=== PATIENT | female | born 1940 | race Caucasian/White ===

== ENCOUNTER 2016-09-13 05:46 | Inpatient (IN) | payer MEDICARE, BC ==
--- NOTE | ~2016-09-13 | CN ---
Consultation Report [facility] [address] [place]. [address] NAME: MARY JAUREGUI : 38 STATUS : REG REF PAT#: [id number] AGE: 75 ADM/REG DATE : 09/13/16 MR#: [id number] REPORT SERV DATE: 09/14/16 DICTATED BY: FRANKIE JUAREZ DATE: 09/14/16 REPORT STATUS : Draft TRANSCRIBED BY: MODL DATE: 09/14/16 GI CONSULTATION NOTE DATE OF CONSULTATION: 09/13/2016 REASON FOR CONSULTATION: Anemia, melena. HISTORY OF PRESENT ILLNESS: Ms Jauregui is a 75-year-old white female, who was admitted to [facility] for upgrading of her pacemaker to BiV pacer, but they were unable to complete this earlier today. During her workup, she was found to be anemic with a hemoglobin of 6.3 and a hematocrit of 20.9, platelets 232, MCV is 78.3. INR is 2.6. She is on Coumadin for mitral valve and aortic valve replacement with mechanical valve. These were performed for her history of rheumatic heart disease. She has had EGD and colonoscopy performed in 2014 for anemia and melena and at that time her INR was 5.1 and hemoglobin and hematocrit were 5.8 and 18.3 respectively. Her EGD performed on 01/06/2015 showed a normal esophagus, normal stomach, and normal duodenum up to the second portion of the duodenum. Colonoscopy was subsequently performed, which showed no endoscopic evidence of bleeding in the entire colon. Her rectal exam was normal and she did have multiple small mouth diverticula seen in the descending and sigmoid colon without any evidence of diverticular bleed. There was only a small amount of semi-solid brown stool seen in the colon, which were fecaliths. Also of note at that time, she had complained of some abdominal pain and due to her history a mesenteric Doppler was performed, which showed normal celiac and SMA. The GARY was not able to be visualized. PAST MEDICAL HISTORY: MVR, AVR with mechanical valve, rheumatic heart disease, right kidney cyst, compression fractures, hypertension, pulmonary hypertension, psoriasis, CHF with ejection fraction of 35%. PAST SURGICAL HISTORY: Pacemaker placement and ablation, cholecystectomy, appendectomy, hysterectomy, bilateral hip repair, and foot surgeries. SOCIAL HISTORY: Former tobacco use. Denies any alcohol or drug use. She is . Has good family support. FAMILY HISTORY: Noncontributory. ALLERGIES: PENICILLIN. MEDICATIONS: Reviewed. PHYSICAL EXAMINATION: VITAL SIGNS: The patient is afebrile. Her vital signs have been stable. GENERAL: The patient is awake and alert, in mild distress secondary to chest pain at the incision site. Consultation Report [place] [id number] [place] [address] NAME: MARY JAUREGUI : 38 STATUS : REG REF PAT#: [id number] AGE: 75 ADM/REG DATE : 09/13/16 MR#: [id number] REPORT SERV DATE: 09/14/16 DICTATED BY: FRANKIE JUAREZ DATE: 09/14/16 REPORT STATUS : Draft TRANSCRIBED BY: BONITA DATE: 09/14/16 HEENT: Atraumatic, normocephalic. Anicteric. Mucous membranes moist. CARDIAC: S1, S2. Systolic murmur. Rumbling. CHEST: Clear. ABDOMEN: Soft, nontender, nondistended. Bowel sounds normoactive. LABORATORY DATA: Showed WBC 6.7, hemoglobin 6.3, hematocrit 20.9, platelets 232, MCV 78.3. INR is 2.6. Sodium 140, potassium 4, chloride 105, bicarb 23, BUN 17, creatinine 1.26, glucose 98. Liver enzymes normal. IMPRESSION AND PLAN: Concern for upper gastrointestinal bleed given melena and anemia and in the setting of anticoagulation. Coumadin has been held. May consider bridging with heparin given her mitral valve replacement and aortic valve replacement. Would like to further investigate with endoscopy with an EGD once her INR is below ideally 1.6. She has received 2 units of PRBCs. Repeat H and H still pending at this time. Continue to monitor H and H and coags. I have taken the liberty of starting her on a Protonix drip. We will continue to follow with you. KRISH/BONITA Frankie Juarez MD / [id number] CC: Ivy Abraham M.D.
--- NOTE | ~2016-09-13 | CN ---
Consultation Report [facility] [address] [place]. [address] NAME: ARACELY JAUREGUI : 38 STATUS : ADM IN [facility]#: [id number] AGE: 75 ADM/REG DATE : 09/15/16 MR#: [id number] REPORT SERV DATE: 09/28/16 DICTATED BY: JAN DAVIS DATE: 09/27/16 REPORT STATUS : Draft TRANSCRIBED BY: MODL DATE: 09/27/16 CONSULTATION DATE OF CONSULTATION: 09/27/2016 REASON FOR CONSULTATION: Iron deficiency anemia. HISTORY OF PRESENT ILLNESS: Ms. Jauregui is a very pleasant 75-year-old woman with history of prior GI bleeding, atrial fibrillation, rheumatic heart disease with two mechanical valve, congestive heart failure with low ejection fraction. She reports that she had a prior iron deficiency requiring IV iron infusion in December of 2014. She was admitted for upgrading of her pacemaker to biventricular pacing and found to have an anemia with a hemoglobin 6.3, MCV of 78 with INR of 2.6. The patient underwent EGD, which showed AVMs and was treated with APC. She was transfused two units of packed red blood cells on 09/13/2016 and since then, hemoglobin has been fairly stable. She since undergone her pacemaker placement, unfortunately developed pocket hematoma and has wound VAC in place for this. She has had this exchanged. Hemoglobin is currently 7.0. When she was admitted, her MCV was low and her ferritin was found to be 7. The patient reports that she has had a difficult time with oral iron previously and she required IV iron when she was treated in 2014. She did have labs from 2015 showing hemoglobin 10.8 at that time. So, it is clear that her hemoglobins have been normalized after her 2014 admission. PAST MEDICAL HISTORY: Congestive heart failure with low ejection fraction of 35%, atrial fibrillation mechanical valve x2, hypertension, history of compression fractures, rheumatic heart disease, mitral valve replacement, aortic valve replacement with mechanical valve, psoriasis. PAST SURGICAL HISTORY: Pacemaker placement, ablation, cholecystectomy, appendectomy, hysterectomy, hip repair, foot surgery. SOCIAL HISTORY: She used to previously smoke. Does not drink or smoke at this time. She is . She lives in [facility]. FAMILY HISTORY: No family history of colon cancer. ALLERGIES: PENICILLIN. MEDICATIONS: Home medications are as follows: Amlodipine/benazepril 5/10 mg p.o. daily, B12 orally, digoxin 0.25 mg p.o. daily, magnesium oxide 400 mg daily, metformin 500 mg p.o. b.i.d., potassium chloride 10 mg mEq p.o. daily, torsemide 20 mg p.o. daily. Her current medications are as follows: Coreg 3.125 mg p.o. b.i.d., vitamin B12 orally, magnesium oxide 400 mg daily, Protonix, potassium, and Coumadin. Consultation Report [place] [id number] [place]. [address] NAME: ARACELY JAUREGUI : 38 STATUS : ADM IN PAT#: [id number] AGE: 75 ADM/REG DATE : 09/15/16 MR#: [id number] REPORT SERV DATE: 09/28/16 DICTATED BY: JAN DAVIS DATE: 09/27/16 REPORT STATUS : Draft TRANSCRIBED BY: BONITA DATE: 09/27/16 REVIEW OF SYSTEMS: Positive for significant fatigue and weakness. Negative for nausea, vomiting, or diarrhea. Positive for melena. Negative for abdominal pain. Negative for weight loss. PHYSICAL EXAMINATION: VITAL SIGNS: Temperature 97.8, heart rate of 70, BP 115/52. HEENT: Pupils equal, round, reactive. No oral lesions. No cervical adenopathy. LUNGS: Clear to auscultation. No wheezes, rales or rhonchi. CARDIAC: Regular rate and rhythm. She has a right-sided pacemaker in place. Wounds healing well. She has a left-sided wound VAC in place. ABDOMEN: Soft, nontender, nondistended. EXTREMITIES: No clubbing. No cyanosis. No edema. NEUROLOGIC: Intact. Strength intact. CURRENT LABS: Hemoglobin is 7.0, MCV of 83 with RDW of 20. ASSESSMENT AND PLAN: Aracely Jauregui is 75-year-old woman with a chronic anemia, now acutely worse with an iron deficiency. I think we re-explained the iron deficiency with AVMs. She needs iron replacement. I think given her low hemoglobin, her CHF, and her prior requirement for IV iron we should go ahead and give her IV iron. I have discussed with this with the patient. Reviewed this symptoms and risks associated with and she is okay with proceeding at this time. We discussed careful observation during the IV infusion. She does have a history of chronic anemia. In 2016, her hemoglobin was re-corrected, so I will make sure I see her in clinic in followup and make sure her hemoglobin corrects completely. I will arrange a followup. Please call me if there are any additional problems. DBD/MODL Jan Davis M.D. / [id number] CC: Ivy Abraham M.D.
--- NOTE | ~2016-09-13 | EGD ---
EGD REPORT [facility] [address] [place] [address] NAME: ARACELY JAUREGUI : 38 STATUS : ADM IN PAT#: [id number] AGE: 75 ADM/REG DATE : 09/15/16 MR#: [id number] REPORT SERV DATE: 09/16/16 DICTATED BY: FRANKIE HUMPHREYS DATE: 09/16/16 REPORT STATUS : Draft TRANSCRIBED BY: [employer] DATE: 09/16/16 [facility] Patient Name: Aracely Jauregui Date of : 1940 Attending MD: FRANKIE HUMPHREYS, Procedure Date No Time: 09/16/2016 Procedure: Upper GI endoscopy Indications: Anemia, Dark stools Referring MD: BRISSA SUTTON MD Medicines: Propofol per Anesthesia Complications: No immediate complications. Estimated blood loss: None. Procedure: Pre-Anesthesia Assessment: - ASA Grade Assessment: IV - A patient with severe systemic disease that is a constant threat to life. After obtaining informed consent, the endoscope was passed under direct vision. Throughout the procedure, the patient's blood pressure, pulse, and oxygen saturations were monitored continuously. The GIF [id number] was introduced through the mouth, and advanced to the second part of duodenum. The upper GI endoscopy was accomplished with ease. The patient tolerated the procedure well. Findings: No gross lesions were noted in the entire esophagus. The Z-line was found 44 cm from the incisors. Diffuse mild inflammation characterized by congestion (edema) and erythema was found in the gastric body and in the gastric antrum. Three small angioectasias with no active bleeding were found in the gastric body. Hemostasis was achieved with administration of argon plasma coagulation. The duodenal bulb and 2nd part of the duodenum were normal. Impression: - No gross lesions in esophagus. - Z-line 44 cm from the incisors. - Gastritis. - Three no active bleeding angioectasias in the stomach. - Normal duodenal bulb and 2nd part of the duodenum. Recommendation: - [facility]. - Use Protonix (pantoprazole) 40 mg PO BID. - No aspirin, ibuprofen, naproxen, or other non-steroidal anti-inflammatory drugs. - Continue present medications. - Return to GI clinic in 4 weeks. EGD REPORT [address] [address] NAME: ARACELY JAUREGUI : 38 STATUS : ADM IN [facility]#: [id number] AGE: 75 ADM/REG DATE : 09/15/16 MR#: [id number] REPORT SERV DATE: 09/16/16 DICTATED BY: FRANKIE HUMPHREYS DATE: 09/16/16 REPORT STATUS : Draft TRANSCRIBED BY: [employer] DATE: 09/16/16 Procedure Code(s): --- Professional --- 44968, Esophagogastroduodenoscopy, flexible, transoral; diagnostic, including collection of specimen(s) by brushing or washing, when performed (separate procedure) Diagnosis Code(s): --- Professional --- K29.70, Gastritis, unspecified, without bleeding D64.9, Anemia, unspecified CPT copyright 2013 [employer]. All rights reserved. The codes documented in this report are preliminary and upon finish photographer review may be revised to meet current compliance requirements. FRANKIE HUMPHREYS, 09/16/2016 2:20 PM This report has been signed electronically. Number of Addenda: 0 Note Initiated On: 09/16/2016 1:51 PM Scope Withdrawal Time 0 hours 0 minutes 0 seconds [address] [place] [id number]
--- NOTE | ~2016-09-13 | DS ---
Discharge Summary [facility] [address] [place]. [address] NAME: MARY JAUREGUI : 38 STATUS : DIS IN PAT#: [id number] AGE: 75 ADM/REG DATE : 09/15/16 MR#: [id number] REPORT SERV DATE: 10/10/16 DICTATED BY: KEVIN HOOVER DATE: 10/09/16 REPORT STATUS : Draft TRANSCRIBED BY: BONITA DATE: 10/09/16 Data Collection from hospitalization DISCHARGE DIAGNOSES: 1. Nonischemic cardiomyopathy. 2. Complete heart block. 3. Atrial fibrillation. 4. Hypertension. 5. Former smoker. 6. History of rheumatic heart disease. 7. Pulmonary hypertension. 8. Psoriasis. 9. Congestive heart failure - ejection fraction 35%. 10.Arthritis. 11.Anemia. CONSULTATIONS: 1. Carolyn Juarez MD. 2. Jan Davis M.D. PROCEDURES PERFORMED: 1. Abandoned lead placement procedure dated 09/13/2016. 2. Upper GI endoscopy on 09/16/2016. 3. Successful left chronic pacemaker generator explantation and successful right-sided CRRT implantation on 09/22/2016. 4. Successful left-sided Vac-Chad replacement on 09/26/2016. 5. Wound closure on 09/28/2016. MEDICATIONS: Eliquis 5 mg twice a day, Coreg 3.125 mg twice a day, vitamin B12 1000 mcg daily, Mag-Ox 400 mg daily, Glucophage 500 mg with breakfast and supper, potassium chloride SR 10 mEq daily, Demadex 10 mg daily, Ultram 50 mg every four hours as needed, and Coumadin 5.5 mg every evening. CONDITION AT DISCHARGE: Stable. DISPOSITION: The patient was discharged home on a low-sodium, low-cholesterol diet with activities as instructed. She would follow up with me two to three weeks following discharge. She would follow up in the Coumadin Clinic Monday following discharge. She would follow up with Dr. Jan Davis four weeks following discharge. She would follow up in the Pacer Clinic on 10/03/2016. HOSPITAL COURSE: This is a 75-year-old female who was going to undergo upgrading of her pacemaker to a biventricular pacer. During her workup, she was found to be anemic with a hemoglobin of 6.3 and hematocrit 20.9. INR level was 2.6. She is on Coumadin for mitral valve and aortic valve replacement with a mechanical valve. These were performed for her history of rheumatic heart disease. She was admitted to the hospital at this time for further evaluation and treatment. Discharge Summary [facility] [address] [place]. [address] NAME: MARY JAUREGUI : 38 STATUS : DIS IN PAT#: [id number] AGE: 75 ADM/REG DATE : 09/15/16 MR#: [id number] REPORT SERV DATE: 10/10/16 DICTATED BY: KEVIN HOOVER DATE: 10/09/16 REPORT STATUS : Draft TRANSCRIBED BY: BONITA DATE: 10/09/16 Upon admission, she was seen by Dr. Carolyn Juarez. She has had an EGD and colonoscopy in 2014 for anemia and melena. At that time, her INR level was 5.1. Her EGD in December of 2014 showed normal esophagus, normal stomach, and normal duodenum up to the second portion of the duodenum. Colonoscopy was subsequently performed, which showed no endoscopic evidence of bleeding in the entire colon. Her rectal exam was normal and she did have multiple small- mouth diverticula seen in the descending and sigmoid colon without any evidence of diverticular bleed. There was only a small amount of semisolid brown stool seen in the colon, which were fecaliths. At that time, she also complained of some abdominal pain, and due to her history, a mesenteric Doppler was performed which showed normal celiac and SMA. The GARY was not able to be visualized. Her liver enzymes were normal. Creatinine was 1.26. There was concern for upper GI bleed given her melena and anemia in the setting of anticoagulation. Coumadin had been held. We may consider bridging with heparin, given her mitral valve replacement and aortic valve replacement. She wanted to investigate with endoscopy with an EGD once the patient's INR level was ideally below 1.6. She had received two units of packed red blood cells. Repeat H and H were pending. The patient was started on a Protonix drip. The following day, Jantoven was being held. Her abdomen was soft with minimal tenderness to palpation diffusely, left greater than right. She received vitamin K. Proton pump inhibitor continued. It was felt that she should undergo an EGD once her INR level was less than 1.8. She developed a hematoma of the left shoulder that was painful. Entresto was started. It was felt that hematoma was secondary to heparin bridge. Coumadin was going to be restarted. Entresto had been started. On 09/16/2016, she was taken to the endoscopic suite by Dr. Carolyn Juarez where she underwent upper GI endoscopy. No gross lesions were noted in the entire esophagus. The Z-line was 44 cm from the incisors. There was gastritis. There were no active bleeding angioectasias in the stomach. There was a normal duodenal bulb and second part of the duodenum. On 09/17/2016, she has not had a bowel movement and had no further bleeding. She was tolerating a regular diet. She had no nausea or vomiting. Coumadin was restarted. H and H remained stable. Proton pump inhibitor continued. We would avoid NSAIDs. She had no chest pain, shortness of breath, or bleeding. Her swelling had decreased. A retrial of heparin bridge would be performed. Amlodipine was continued. The patient did not take her Coreg that evening and had some swelling around the pacer site. Heparin bridge was being performed to an INR level greater than 2. She was tolerating her diet. On 09/19/2016, she had a bowel movement. There was no bright red blood per rectum. There was no overt bleeding. Coumadin was continued. She was tolerating a regular diet. On 09/20/2016, Coumadin loading continued. She was taken to the electrophysiology laboratory where I performed the above-mentioned procedure. She tolerated this well, and there were no complications. The next day, blood pressure was under better control. She had some pain at the pacemaker site. She had no palpitations or chest pain. Entresto was decreased to half dose. Amlodipine was held. H and H remained stable. On 09/24/2016, she was comfortable. She was eating well. Her incisions looked okay. On 09/25/2016, she did remain comfortable. She had no shortness of breath. Vital signs were okay. INR level was 1.9. Coumadin was increased. Vac-Chad change was going to be performed the following day. On 09/27/2016, hemoglobin was still decreased. She was seen by Dr. Jan Davis regarding iron deficiency anemia. She had been transfused two units of packed red blood cells on 09/13/2016, and then since that time, her hemoglobin has been fairly stable. She had undergone pacemaker implantation, unfortunately, had developed pocket hematoma and had a Discharge Summary [place] [id number] [place]. [address] NAME: MARY JAUREGUI : 38 STATUS : DIS IN PAT#: [id number] AGE: 75 ADM/REG DATE : 09/15/16 MR#: [id number] REPORT SERV DATE: 10/10/16 DICTATED BY: KEVIN HOOVER DATE: 10/09/16 REPORT STATUS : Draft TRANSCRIBED BY: [employer] DATE: 10/09/[address] for this. She did have this exchanged. Hemoglobin was currently 7. She reports that she has had a difficult time with oral iron previously and had required IV iron when she was treated in 2014. Her chronic anemia was now acutely worse with iron deficiency, she does need iron replacement. It was felt that given her low hemoglobin, her congestive heart failure and her prior requirement for IV iron, we should go ahead and give her IV iron. The next day, wound closure was performed. She was comfortable. Iron had been infused. Discharge planning was performed. On 09/29/2016, discharge instructions were given. Due to her improved and stable condition, she was discharged home with the above- stated instructions. Information collected by: Renea Millan I submit the above information as my discharge summary. TG/BONITA Kevin Hoover M.D. / [id number] CC: Ivy Abraham M.D. Camille Sommer, MD Davey B. Daniel, M.D.
[~2016-09-13 05:46] MED LIST: C1 PO; CYANO1000T PO; DEMA20 PO; DIGITEK0.25 MG PO; FLAG500TAB PO; FLORASTOR250 MG PO; GLUCPH PO; JANTOVEN4 MG PO; JANTOVEN5 MG PO; JANTOVEN6 MG PO; KDUR10 PO; KLOR-CON M2020 MEQ PO; LAN25 PO; LIPITOR10 PO; LOTREL1 CA1 PO; MAGOX4 PO; NORV10 PO; PROTONIX PO
[2016-09-13 07:00] LABS: BASOPHILS 0.7 %; BASOPHILS ABSOLUTE 0.05 10/3/uL (0.0-0.16); EOSINOPHILS 3.6 %; EOSINOPHILS ABSOLUTE 0.24 10/3/uL (0.0-0.53); IMMATURE GRANULOCYTES 0.1 %; IMMATURE GRANULOCYTES ABSOLUTE 0.01 10/3/uL (0.0-0.11); LYMPHOCYTES ABSOLUTE 1.47 10/3/uL (0.67-4.30); MEAN CORPUS HGB CONC 30.1 g/dL (32.0-36.0); MEAN PLATELET VOLUME 9.4 fL (9.2-13.0); MONOCYTES 9.4 %; MONOCYTES ABSOLUTE 0.63 10/3/uL (0.21-1.20); NEUTROPHILS 64.2 %; NEUTROPHILS ABSOLUTE 4.29 10/3/uL (2.02-8.40); PLATELET COUNT 232 10/3/uL (150-400); RBC DISTRIBUTION WIDTH 16.3 % (12.0-16.0); RED CELL COUNT 2.67 10/6/uL (4.0-5.6); WHITE BLOOD CELLS 6.7 10/3/uL (4.5-10.5)
[2016-09-13 07:03] LABS: HEMATOCRIT 20.9 % (36.0-48.0); HEMOGLOBIN 6.3 g/dL (12.0-16.0); MANUAL DIFF NO %; MEAN CORPUSCULAR HEMOGLOB 23.6 pg (26.0-34.0); MEAN CORPUSCULAR VOLUME 78.3 fL (80-100)
[2016-09-13 07:07] LABS: INTERNATIONAL NORMAL RATI 2.6 UNITS (-); PROTIME (NOT ORD) 27.9 SEC (12.0-14.5)
[2016-09-13 07:14] LABS: BUN (BLOOD UREA NITROGEN) 17 MG/DL (6-23); CALCIUM, SERUM 8.7 MG/DL (8.5-10.4); CHLORIDE, SERUM 105 MMOL/L (96-112); CO2 (CARBON DIOXIDE) 23 MMOL/L (24-34); CREATININE 1.26 MG/DL (0.55-1.02); GFR AFRICAN AMERICAN 48 ML/MIN (>=60); GFR NON AFRICAN AMERICAN 41 ML/MIN (>=60); GLUCOSE, SERUM 98 MG/DL (60-99); SODIUM, SERUM 140 MMOL/L (135-148)
[2016-09-13 10:18] LABS: RETICULOCYTE COUNT 2.3 % (0.5-2.5); RETICULOCYTE COUNT ABSOLUTE 60.8 10/3/uL (20.2-119.8)
[2016-09-14 04:17] LABS: BASOPHILS 0.4 %; BASOPHILS ABSOLUTE 0.03 10/3/uL (0.0-0.16); EOSINOPHILS 2.5 %; EOSINOPHILS ABSOLUTE 0.17 10/3/uL (0.0-0.53); IMMATURE GRANULOCYTES 0.3 %; IMMATURE GRANULOCYTES ABSOLUTE 0.02 10/3/uL (0.0-0.11); LYMPHOCYTES 13.3 %; MEAN CORPUS HGB CONC 30.6 g/dL (32.0-36.0); MEAN CORPUSCULAR HEMOGLOB 24.8 pg (26.0-34.0); MEAN PLATELET VOLUME 9.5 fL (9.2-13.0); MONOCYTES 10.4 %; NEUTROPHILS 73.1 %; NEUTROPHILS ABSOLUTE 4.93 10/3/uL (2.02-8.40); PLATELET COUNT 199 10/3/uL (150-400); RBC DISTRIBUTION WIDTH 15.6 % (12.0-16.0); RED CELL COUNT 3.15 10/6/uL (4.0-5.6); WHITE BLOOD CELLS 6.8 10/3/uL (4.5-10.5)
[2016-09-14 04:18] LABS: HEMATOCRIT 25.5 % (36.0-48.0); HEMOGLOBIN 7.8 g/dL (12.0-16.0); MANUAL DIFF NO %
[2016-09-14 04:22] LABS: INTERNATIONAL NORMAL RATI 2.5 UNITS (-); PROTIME (NOT ORD) 26.7 SEC (12.0-14.5)
[2016-09-14 04:37] LABS: BUN (BLOOD UREA NITROGEN) 16 MG/DL (6-23); CALCIUM, SERUM 8.5 MG/DL (8.5-10.4); CHLORIDE, SERUM 111 MMOL/L (96-112); CO2 (CARBON DIOXIDE) 27 MMOL/L (24-34); CREATININE 1.29 MG/DL (0.55-1.02); GFR AFRICAN AMERICAN 46 ML/MIN (>=60); GFR NON AFRICAN AMERICAN 40 ML/MIN (>=60); GLUCOSE, SERUM 93 MG/DL (60-99); POTASSIUM, SERUM 4.7 MMOL/L (3.5-5.3); SODIUM, SERUM 144 MMOL/L (135-148)
[2016-09-14 10:53] LABS: % IRON SAT 4 % (20-50); FERRITIN 7 NG/ML (8-252); IRON BINDING CAPACITY 451 MCG/DL (225-410); IRON, SERUM 18 MCG/DL (35-150)
[2016-09-14 17:52] LABS: HEMATOCRIT 26.4 % (36.0-48.0); HEMOGLOBIN 8.3 g/dL (12.0-16.0)
[2016-09-14 17:58] LABS: INTERNATIONAL NORMAL RATI 2.4 UNITS (-); PROTIME (NOT ORD) 25.6 SEC (12.0-14.5)
[2016-09-15 05:29] LABS: BASOPHILS 0.4 %; BASOPHILS ABSOLUTE 0.03 10/3/uL (0.0-0.16); EOSINOPHILS 1.8 %; EOSINOPHILS ABSOLUTE 0.15 10/3/uL (0.0-0.53); HEMATOCRIT 26.3 % (36.0-48.0); IMMATURE GRANULOCYTES 0.1 %; IMMATURE GRANULOCYTES ABSOLUTE 0.01 10/3/uL (0.0-0.11); LYMPHOCYTES 18.5 %; MEAN CORPUS HGB CONC 30.4 g/dL (32.0-36.0); MEAN CORPUSCULAR HEMOGLOB 24.6 pg (26.0-34.0); MEAN CORPUSCULAR VOLUME 80.9 fL (80-100); MEAN PLATELET VOLUME 10.2 fL (9.2-13.0); MONOCYTES 10.5 %; MONOCYTES ABSOLUTE 0.85 10/3/uL (0.21-1.20); NEUTROPHILS 68.7 %; NEUTROPHILS ABSOLUTE 5.59 10/3/uL (2.02-8.40); PLATELET COUNT 200 10/3/uL (150-400); RBC DISTRIBUTION WIDTH 16.1 % (12.0-16.0); RED CELL COUNT 3.25 10/6/uL (4.0-5.6); WHITE BLOOD CELLS 8.1 10/3/uL (4.5-10.5)
[2016-09-15 05:33] LABS: MANUAL DIFF NO %
[2016-09-15 05:36] LABS: INTERNATIONAL NORMAL RATI 1.9 UNITS (-)
[2016-09-15 05:40] LABS: PROTIME (NOT ORD) 21.4 SEC (12.0-14.5)
[2016-09-15 09:25] LABS: BUN (BLOOD UREA NITROGEN) 20 MG/DL (6-23); CALCIUM, SERUM 8.4 MG/DL (8.5-10.4); CHLORIDE, SERUM 107 MMOL/L (96-112); CO2 (CARBON DIOXIDE) 25 MMOL/L (24-34); CREATININE 1.25 MG/DL (0.55-1.02); GFR AFRICAN AMERICAN 48 ML/MIN (>=60); GFR NON AFRICAN AMERICAN 41 ML/MIN (>=60); GLUCOSE, SERUM 87 MG/DL (60-99); POTASSIUM, SERUM 3.9 MMOL/L (3.5-5.3); SODIUM, SERUM 142 MMOL/L (135-148)
[2016-09-16 07:45] LABS: INTERNATIONAL NORMAL RATI 1.4 UNITS (-)
[2016-09-16 07:46] LABS: PROTIME (NOT ORD) 17.2 SEC (12.0-14.5)
[2016-09-16 07:47] LABS: PARTIAL THROMBO TIME 96.7 SEC (22.5-37.2)
[2016-09-16 07:49] LABS: BUN (BLOOD UREA NITROGEN) 20 MG/DL (6-23); CALCIUM, SERUM 8.5 MG/DL (8.5-10.4); CHLORIDE, SERUM 107 MMOL/L (96-112); CO2 (CARBON DIOXIDE) 27 MMOL/L (24-34); CREATININE 1.37 MG/DL (0.55-1.02); GFR AFRICAN AMERICAN 43 ML/MIN (>=60); GFR NON AFRICAN AMERICAN 37 ML/MIN (>=60); GLUCOSE, SERUM 92 MG/DL (60-99); POTASSIUM, SERUM 3.9 MMOL/L (3.5-5.3); SODIUM, SERUM 142 MMOL/L (135-148)
[2016-09-17 06:50] LABS: HEMOGLOBIN 8.1 g/dL (12.0-16.0)
[2016-09-17 07:00] LABS: INTERNATIONAL NORMAL RATI 1.4 UNITS (-); PROTIME (NOT ORD) 17.3 SEC (12.0-14.5)
[2016-09-17 07:09] LABS: CALCIUM, SERUM 8.7 MG/DL (8.5-10.4); CHLORIDE, SERUM 105 MMOL/L (96-112); CO2 (CARBON DIOXIDE) 27 MMOL/L (24-34); CREATININE 1.33 MG/DL (0.55-1.02); GFR AFRICAN AMERICAN 45 ML/MIN (>=60); GFR NON AFRICAN AMERICAN 38 ML/MIN (>=60); GLUCOSE, SERUM 95 MG/DL (60-99); POTASSIUM, SERUM 3.8 MMOL/L (3.5-5.3); SODIUM, SERUM 140 MMOL/L (135-148)
[2016-09-17 07:12] LABS: BUN (BLOOD UREA NITROGEN) 15 MG/DL (6-23)
[2016-09-18 03:35] LABS: BASOPHILS 0.6 %; BASOPHILS ABSOLUTE 0.05 10/3/uL (0.0-0.16); EOSINOPHILS 3.1 %; EOSINOPHILS ABSOLUTE 0.25 10/3/uL (0.0-0.53); HEMATOCRIT 25.7 % (36.0-48.0); HEMOGLOBIN 7.7 g/dL (12.0-16.0); IMMATURE GRANULOCYTES 0.3 %; IMMATURE GRANULOCYTES ABSOLUTE 0.02 10/3/uL (0.0-0.11); LYMPHOCYTES 22.4 %; LYMPHOCYTES ABSOLUTE 1.78 10/3/uL (0.67-4.30); MEAN CORPUSCULAR HEMOGLOB 24.6 pg (26.0-34.0); MEAN CORPUSCULAR VOLUME 82.1 fL (80-100); MONOCYTES 9.6 %; MONOCYTES ABSOLUTE 0.76 10/3/uL (0.21-1.20); NEUTROPHILS ABSOLUTE 5.09 10/3/uL (2.02-8.40); PLATELET COUNT 195 10/3/uL (150-400); RBC DISTRIBUTION WIDTH 17.4 % (12.0-16.0); RED CELL COUNT 3.13 10/6/uL (4.0-5.6)
[2016-09-18 03:37] LABS: MANUAL DIFF NO %
[2016-09-18 03:46] LABS: INTERNATIONAL NORMAL RATI 1.5 UNITS (-); PROTIME (NOT ORD) 17.9 SEC (12.0-14.5)
[2016-09-18 03:47] LABS: BUN (BLOOD UREA NITROGEN) 20 MG/DL (6-23); CALCIUM, SERUM 8.5 MG/DL (8.5-10.4); CHLORIDE, SERUM 103 MMOL/L (96-112); CO2 (CARBON DIOXIDE) 28 MMOL/L (24-34); CREATININE 1.38 MG/DL (0.55-1.02); GFR AFRICAN AMERICAN 43 ML/MIN (>=60); GFR NON AFRICAN AMERICAN 37 ML/MIN (>=60); GLUCOSE, SERUM 104 MG/DL (60-99); POTASSIUM, SERUM 3.9 MMOL/L (3.5-5.3); SODIUM, SERUM 140 MMOL/L (135-148)
[2016-09-18 04:09] LABS: PARTIAL THROMBO TIME > 150.0 SEC (22.5-37.2)
[2016-09-19 06:37] LABS: INTERNATIONAL NORMAL RATI 1.5 UNITS (-); PROTIME (NOT ORD) 17.6 SEC (12.0-14.5)
[2016-09-19 06:39] LABS: BASOPHILS 0.4 %; BASOPHILS ABSOLUTE 0.03 10/3/uL (0.0-0.16); EOSINOPHILS 3.9 %; EOSINOPHILS ABSOLUTE 0.28 10/3/uL (0.0-0.53); HEMATOCRIT 25.4 % (36.0-48.0); HEMOGLOBIN 7.5 g/dL (12.0-16.0); IMMATURE GRANULOCYTES 0.3 %; IMMATURE GRANULOCYTES ABSOLUTE 0.02 10/3/uL (0.0-0.11); LYMPHOCYTES 18.3 %; LYMPHOCYTES ABSOLUTE 1.31 10/3/uL (0.67-4.30); MANUAL DIFF NO %; MEAN CORPUS HGB CONC 29.5 g/dL (32.0-36.0); MEAN CORPUSCULAR HEMOGLOB 24.6 pg (26.0-34.0); MEAN CORPUSCULAR VOLUME 83.3 fL (80-100); MEAN PLATELET VOLUME 10.3 fL (9.2-13.0); MONOCYTES 10.6 %; MONOCYTES ABSOLUTE 0.76 10/3/uL (0.21-1.20); NEUTROPHILS 66.5 %; NEUTROPHILS ABSOLUTE 4.76 10/3/uL (2.02-8.40); PLATELET COUNT 219 10/3/uL (150-400); RBC DISTRIBUTION WIDTH 18.6 % (12.0-16.0); RED CELL COUNT 3.05 10/6/uL (4.0-5.6); WHITE BLOOD CELLS 7.2 10/3/uL (4.5-10.5)
[2016-09-19 06:49] LABS: BUN (BLOOD UREA NITROGEN) 18 MG/DL (6-23); CALCIUM, SERUM 8.7 MG/DL (8.5-10.4); CHLORIDE, SERUM 105 MMOL/L (96-112); CO2 (CARBON DIOXIDE) 27 MMOL/L (24-34); CREATININE 1.25 MG/DL (0.55-1.02); GFR AFRICAN AMERICAN 48 ML/MIN (>=60); GFR NON AFRICAN AMERICAN 41 ML/MIN (>=60); GLUCOSE, SERUM 90 MG/DL (60-99); SODIUM, SERUM 142 MMOL/L (135-148)
[2016-09-20 04:43] LABS: BASOPHILS 0.9 %; BASOPHILS ABSOLUTE 0.06 10/3/uL (0.0-0.16); EOSINOPHILS 3.7 %; EOSINOPHILS ABSOLUTE 0.24 10/3/uL (0.0-0.53); HEMATOCRIT 26.1 % (36.0-48.0); HEMOGLOBIN 7.8 g/dL (12.0-16.0); IMMATURE GRANULOCYTES 0.3 %; IMMATURE GRANULOCYTES ABSOLUTE 0.02 10/3/uL (0.0-0.11); LYMPHOCYTES 22.4 %; LYMPHOCYTES ABSOLUTE 1.45 10/3/uL (0.67-4.30); MEAN CORPUS HGB CONC 29.9 g/dL (32.0-36.0); MEAN CORPUSCULAR HEMOGLOB 24.9 pg (26.0-34.0); MEAN CORPUSCULAR VOLUME 83.4 fL (80-100); MEAN PLATELET VOLUME 9.8 fL (9.2-13.0); MONOCYTES 7.6 %; MONOCYTES ABSOLUTE 0.49 10/3/uL (0.21-1.20); NEUTROPHILS 65.1 %; PLATELET COUNT 209 10/3/uL (150-400); RED CELL COUNT 3.13 10/6/uL (4.0-5.6); WHITE BLOOD CELLS 6.5 10/3/uL (4.5-10.5)
[2016-09-20 04:46] LABS: MANUAL DIFF NO %
[2016-09-20 04:50] LABS: CALCIUM, SERUM 9.1 MG/DL (8.5-10.4); CHLORIDE, SERUM 103 MMOL/L (96-112); CO2 (CARBON DIOXIDE) 27 MMOL/L (24-34); CREATININE 1.35 MG/DL (0.55-1.02); GFR AFRICAN AMERICAN 44 ML/MIN (>=60); GFR NON AFRICAN AMERICAN 38 ML/MIN (>=60); GLUCOSE, SERUM 94 MG/DL (60-99); POTASSIUM, SERUM 4.6 MMOL/L (3.5-5.3); SODIUM, SERUM 139 MMOL/L (135-148)
[2016-09-20 04:54] LABS: BUN (BLOOD UREA NITROGEN) 24 MG/DL (6-23)
[2016-09-20 04:57] LABS: INTERNATIONAL NORMAL RATI 1.7 UNITS (-); PROTIME (NOT ORD) 19.4 SEC (12.0-14.5)
[2016-09-21 04:54] LABS: BASOPHILS 0.7 %; BASOPHILS ABSOLUTE 0.05 10/3/uL (0.0-0.16); EOSINOPHILS 3.4 %; EOSINOPHILS ABSOLUTE 0.24 10/3/uL (0.0-0.53); HEMATOCRIT 24.8 % (36.0-48.0); HEMOGLOBIN 7.4 g/dL (12.0-16.0); IMMATURE GRANULOCYTES 0.1 %; IMMATURE GRANULOCYTES ABSOLUTE 0.01 10/3/uL (0.0-0.11); LYMPHOCYTES 18.3 %; LYMPHOCYTES ABSOLUTE 1.29 10/3/uL (0.67-4.30); MEAN CORPUS HGB CONC 29.8 g/dL (32.0-36.0); MEAN CORPUSCULAR HEMOGLOB 24.8 pg (26.0-34.0); MEAN CORPUSCULAR VOLUME 83.2 fL (80-100); MEAN PLATELET VOLUME 10.3 fL (9.2-13.0); MONOCYTES 9.5 %; MONOCYTES ABSOLUTE 0.67 10/3/uL (0.21-1.20); NEUTROPHILS ABSOLUTE 4.79 10/3/uL (2.02-8.40); PLATELET COUNT 221 10/3/uL (150-400); RBC DISTRIBUTION WIDTH 19.7 % (12.0-16.0); RED CELL COUNT 2.98 10/6/uL (4.0-5.6); WHITE BLOOD CELLS 7.1 10/3/uL (4.5-10.5)
[2016-09-21 04:57] LABS: INTERNATIONAL NORMAL RATI 1.8 UNITS (-); PROTIME (NOT ORD) 20.4 SEC (12.0-14.5)
[2016-09-21 04:58] LABS: PARTIAL THROMBO TIME 82.6 SEC (22.5-37.2)
[2016-09-21 05:01] LABS: BUN (BLOOD UREA NITROGEN) 27 MG/DL (6-23); CALCIUM, SERUM 8.8 MG/DL (8.5-10.4); CHLORIDE, SERUM 100 MMOL/L (96-112); CO2 (CARBON DIOXIDE) 28 MMOL/L (24-34); CREATININE 1.54 MG/DL (0.55-1.02); GFR AFRICAN AMERICAN 37 ML/MIN (>=60); GFR NON AFRICAN AMERICAN 32 ML/MIN (>=60); GLUCOSE, SERUM 86 MG/DL (60-99); POTASSIUM, SERUM 4.3 MMOL/L (3.5-5.3); SODIUM, SERUM 135 MMOL/L (135-148)
[2016-09-21 05:03] LABS: MANUAL DIFF NO %
[2016-09-22 03:22] LABS: BASOPHILS 0.4 %; BASOPHILS ABSOLUTE 0.03 10/3/uL (0.0-0.16); EOSINOPHILS 2.5 %; EOSINOPHILS ABSOLUTE 0.18 10/3/uL (0.0-0.53); HEMATOCRIT 24.5 % (36.0-48.0); HEMOGLOBIN 7.5 g/dL (12.0-16.0); IMMATURE GRANULOCYTES 0.1 %; IMMATURE GRANULOCYTES ABSOLUTE 0.01 10/3/uL (0.0-0.11); LYMPHOCYTES 18.2 %; MEAN CORPUS HGB CONC 30.6 g/dL (32.0-36.0); MEAN CORPUSCULAR HEMOGLOB 25.3 pg (26.0-34.0); MEAN CORPUSCULAR VOLUME 82.8 fL (80-100); MEAN PLATELET VOLUME 10.1 fL (9.2-13.0); MONOCYTES 9.4 %; MONOCYTES ABSOLUTE 0.67 10/3/uL (0.21-1.20); NEUTROPHILS 69.4 %; NEUTROPHILS ABSOLUTE 4.95 10/3/uL (2.02-8.40); PLATELET COUNT 205 10/3/uL (150-400); RBC DISTRIBUTION WIDTH 20.4 % (12.0-16.0); RED CELL COUNT 2.96 10/6/uL (4.0-5.6); WHITE BLOOD CELLS 7.1 10/3/uL (4.5-10.5)
[2016-09-22 03:26] LABS: MANUAL DIFF NO %
[2016-09-22 03:31] LABS: BUN (BLOOD UREA NITROGEN) 28 MG/DL (6-23); CALCIUM, SERUM 8.9 MG/DL (8.5-10.4); CHLORIDE, SERUM 102 MMOL/L (96-112); CO2 (CARBON DIOXIDE) 26 MMOL/L (24-34); GFR AFRICAN AMERICAN 46 ML/MIN (>=60); GFR NON AFRICAN AMERICAN 40 ML/MIN (>=60); GLUCOSE, SERUM 91 MG/DL (60-99); POTASSIUM, SERUM 4.3 MMOL/L (3.5-5.3); SODIUM, SERUM 136 MMOL/L (135-148)
[2016-09-22 03:33] LABS: INTERNATIONAL NORMAL RATI 1.8 UNITS (-); PROTIME (NOT ORD) 20.5 SEC (12.0-14.5)
[2016-09-22 03:34] LABS: PARTIAL THROMBO TIME 90.9 SEC (22.5-37.2)
[2016-09-23 06:08] LABS: BASOPHILS 0.4 %; BASOPHILS ABSOLUTE 0.03 10/3/uL (0.0-0.16); EOSINOPHILS 2.4 %; EOSINOPHILS ABSOLUTE 0.18 10/3/uL (0.0-0.53); HEMATOCRIT 24.4 % (36.0-48.0); HEMOGLOBIN 7.4 g/dL (12.0-16.0); IMMATURE GRANULOCYTES 0.1 %; IMMATURE GRANULOCYTES ABSOLUTE 0.01 10/3/uL (0.0-0.11); LYMPHOCYTES 9.9 %; LYMPHOCYTES ABSOLUTE 0.73 10/3/uL (0.67-4.30); MEAN CORPUS HGB CONC 30.3 g/dL (32.0-36.0); MEAN CORPUSCULAR HEMOGLOB 25.4 pg (26.0-34.0); MEAN CORPUSCULAR VOLUME 83.8 fL (80-100); MEAN PLATELET VOLUME 10.1 fL (9.2-13.0); MONOCYTES 8.5 %; MONOCYTES ABSOLUTE 0.63 10/3/uL (0.21-1.20); NEUTROPHILS 78.7 %; NEUTROPHILS ABSOLUTE 5.83 10/3/uL (2.02-8.40); PLATELET COUNT 214 10/3/uL (150-400); RBC DISTRIBUTION WIDTH 20.5 % (12.0-16.0); RED CELL COUNT 2.91 10/6/uL (4.0-5.6); WHITE BLOOD CELLS 7.4 10/3/uL (4.5-10.5)
[2016-09-23 06:12] LABS: MANUAL DIFF NO %
[2016-09-23 06:13] LABS: INTERNATIONAL NORMAL RATI 2.1 UNITS (-)
[2016-09-23 06:19] LABS: CALCIUM, SERUM 8.7 MG/DL (8.5-10.4); CHLORIDE, SERUM 103 MMOL/L (96-112); CO2 (CARBON DIOXIDE) 27 MMOL/L (24-34); CREATININE 1.41 MG/DL (0.55-1.02); GFR AFRICAN AMERICAN 42 ML/MIN (>=60); GFR NON AFRICAN AMERICAN 36 ML/MIN (>=60); GLUCOSE, SERUM 92 MG/DL (60-99); POTASSIUM, SERUM 4.5 MMOL/L (3.5-5.3); SODIUM, SERUM 139 MMOL/L (135-148)
[2016-09-23 06:20] LABS: BUN (BLOOD UREA NITROGEN) 22 MG/DL (6-23)
[2016-09-24 06:00] LABS: BASOPHILS 0.5 %; BASOPHILS ABSOLUTE 0.03 10/3/uL (0.0-0.16); EOSINOPHILS 3.4 %; EOSINOPHILS ABSOLUTE 0.22 10/3/uL (0.0-0.53); HEMATOCRIT 24.8 % (36.0-48.0); HEMOGLOBIN 7.5 g/dL (12.0-16.0); IMMATURE GRANULOCYTES 0.2 %; IMMATURE GRANULOCYTES ABSOLUTE 0.01 10/3/uL (0.0-0.11); LYMPHOCYTES 15.5 %; MEAN CORPUS HGB CONC 30.2 g/dL (32.0-36.0); MEAN CORPUSCULAR HEMOGLOB 25.3 pg (26.0-34.0); MEAN CORPUSCULAR VOLUME 83.8 fL (80-100); MEAN PLATELET VOLUME 9.7 fL (9.2-13.0); MONOCYTES 10.4 %; MONOCYTES ABSOLUTE 0.67 10/3/uL (0.21-1.20); NEUTROPHILS ABSOLUTE 4.51 10/3/uL (2.02-8.40); PLATELET COUNT 205 10/3/uL (150-400); RBC DISTRIBUTION WIDTH 20.3 % (12.0-16.0); RED CELL COUNT 2.96 10/6/uL (4.0-5.6); WHITE BLOOD CELLS 6.4 10/3/uL (4.5-10.5)
[2016-09-24 06:02] LABS: INTERNATIONAL NORMAL RATI 2.1 UNITS (-); PROTIME (NOT ORD) 23.2 SEC (12.0-14.5)
[2016-09-24 06:04] LABS: MANUAL DIFF NO %
[2016-09-24 06:10] LABS: CALCIUM, SERUM 8.5 MG/DL (8.5-10.4); CHLORIDE, SERUM 106 MMOL/L (96-112); CO2 (CARBON DIOXIDE) 26 MMOL/L (24-34); CREATININE 1.35 MG/DL (0.55-1.02); GFR AFRICAN AMERICAN 44 ML/MIN (>=60); GFR NON AFRICAN AMERICAN 38 ML/MIN (>=60); GLUCOSE, SERUM 91 MG/DL (60-99); POTASSIUM, SERUM 4.6 MMOL/L (3.5-5.3); SODIUM, SERUM 140 MMOL/L (135-148)
[2016-09-24 06:11] LABS: BUN (BLOOD UREA NITROGEN) 29 MG/DL (6-23)
[2016-09-25 05:23] LABS: BASOPHILS 0.6 %; BASOPHILS ABSOLUTE 0.03 10/3/uL (0.0-0.16); EOSINOPHILS 4.1 %; EOSINOPHILS ABSOLUTE 0.22 10/3/uL (0.0-0.53); HEMOGLOBIN 7.2 g/dL (12.0-16.0); IMMATURE GRANULOCYTES 0.2 %; IMMATURE GRANULOCYTES ABSOLUTE 0.01 10/3/uL (0.0-0.11); LYMPHOCYTES 18.2 %; LYMPHOCYTES ABSOLUTE 0.98 10/3/uL (0.67-4.30); MEAN CORPUSCULAR HEMOGLOB 25.4 pg (26.0-34.0); MEAN CORPUSCULAR VOLUME 84.8 fL (80-100); MEAN PLATELET VOLUME 9.9 fL (9.2-13.0); MONOCYTES 12.2 %; MONOCYTES ABSOLUTE 0.66 10/3/uL (0.21-1.20); NEUTROPHILS 64.7 %; NEUTROPHILS ABSOLUTE 3.49 10/3/uL (2.02-8.40); PLATELET COUNT 211 10/3/uL (150-400); RBC DISTRIBUTION WIDTH 20.4 % (12.0-16.0); RED CELL COUNT 2.83 10/6/uL (4.0-5.6); WHITE BLOOD CELLS 5.4 10/3/uL (4.5-10.5)
[2016-09-25 05:26] LABS: MANUAL DIFF NO %
[2016-09-25 05:29] LABS: BUN (BLOOD UREA NITROGEN) 27 MG/DL (6-23); CALCIUM, SERUM 9.2 MG/DL (8.5-10.4); CHLORIDE, SERUM 105 MMOL/L (96-112); CO2 (CARBON DIOXIDE) 26 MMOL/L (24-34); CREATININE 1.15 MG/DL (0.55-1.02); GFR AFRICAN AMERICAN 53 ML/MIN (>=60); GFR NON AFRICAN AMERICAN 46 ML/MIN (>=60); GLUCOSE, SERUM 82 MG/DL (60-99); POTASSIUM, SERUM 4.4 MMOL/L (3.5-5.3); SODIUM, SERUM 139 MMOL/L (135-148)
[2016-09-25 05:36] LABS: INTERNATIONAL NORMAL RATI 1.9 UNITS (-); PROTIME (NOT ORD) 21.8 SEC (12.0-14.5)
[2016-09-26 04:21] LABS: HEMATOCRIT 23.3 % (36.0-48.0); HEMOGLOBIN 7.2 g/dL (12.0-16.0); MEAN CORPUS HGB CONC 30.9 g/dL (32.0-36.0); MEAN CORPUSCULAR HEMOGLOB 26.1 pg (26.0-34.0); MEAN CORPUSCULAR VOLUME 84.4 fL (80-100); MEAN PLATELET VOLUME 10.3 fL (9.2-13.0); PLATELET COUNT 255 10/3/uL (150-400); RBC DISTRIBUTION WIDTH 20.5 % (12.0-16.0); RED CELL COUNT 2.76 10/6/uL (4.0-5.6); WHITE BLOOD CELLS 5.3 10/3/uL (4.5-10.5)
[2016-09-26 04:30] LABS: MANUAL DIFF YES %
[2016-09-26 04:34] LABS: BUN (BLOOD UREA NITROGEN) 29 MG/DL (6-23); CALCIUM, SERUM 8.9 MG/DL (8.5-10.4); CHLORIDE, SERUM 104 MMOL/L (96-112); CO2 (CARBON DIOXIDE) 28 MMOL/L (24-34); CREATININE 1.35 MG/DL (0.55-1.02); GFR AFRICAN AMERICAN 44 ML/MIN (>=60); GFR NON AFRICAN AMERICAN 38 ML/MIN (>=60); GLUCOSE, SERUM 83 MG/DL (60-99); POTASSIUM, SERUM 4.2 MMOL/L (3.5-5.3); SODIUM, SERUM 139 MMOL/L (135-148)
[2016-09-26 04:34] LABS: INTERNATIONAL NORMAL RATI 2.1 UNITS (-); PROTIME (NOT ORD) 23.1 SEC (12.0-14.5)
[2016-09-26 06:54] LABS: ANISOCYTOSIS 1+ (5-10/OIF) (0-5/OIF); BAND NEUTROPHILS 3 %; ELLIPTOCYTES 1+ (3-10/OIF) (0-2/OIF); EOSINOPHILS 6 %; EOSINOPHILS ABSOLUTE (CALC) 0.32 10/3/uL (0.0-0.53); HYPOCHROMIA 1+ (3-10/OIF) (0-2/OIF); LYMPHOCYTES 20 %; LYMPHOCYTES ABSOLUTE (CALC) 1.06 10/3/uL (0.67-4.30); MONOCYTES 2 %; MONOCYTES ABSOLUTE (CALC) 0.11 10/3/uL (0.21-1.20); NEUTROPHILS ABSOLUTE (CALC) 3.82 10/3/uL (2.02-8.40); PLATELET ESTIMATE ADQ (ADEQUATE); POIKILOCYTOSIS 1+ (5-10/OIF) (0-5/OIF); POLYCHROMASIA 1+ (2-5/OIF) (0-1/OIF); SEGMENTED NEUTROPHIL (0) 69 %; TOTAL NUCLEATED CELLS 100
[2016-09-27 05:25] LABS: BASOPHILS ABSOLUTE 0.05 10/3/uL (0.0-0.16); EOSINOPHILS 4.5 %; EOSINOPHILS ABSOLUTE 0.23 10/3/uL (0.0-0.53); HEMATOCRIT 22.9 % (36.0-48.0); IMMATURE GRANULOCYTES 0.2 %; IMMATURE GRANULOCYTES ABSOLUTE 0.01 10/3/uL (0.0-0.11); LYMPHOCYTES 22.7 %; LYMPHOCYTES ABSOLUTE 1.16 10/3/uL (0.67-4.30); MEAN CORPUS HGB CONC 30.6 g/dL (32.0-36.0); MEAN CORPUSCULAR HEMOGLOB 25.5 pg (26.0-34.0); MEAN CORPUSCULAR VOLUME 83.6 fL (80-100); MEAN PLATELET VOLUME 9.1 fL (9.2-13.0); MONOCYTES 10.2 %; MONOCYTES ABSOLUTE 0.52 10/3/uL (0.21-1.20); NEUTROPHILS 61.4 %; NEUTROPHILS ABSOLUTE 3.13 10/3/uL (2.02-8.40); PLATELET COUNT 228 10/3/uL (150-400); RBC DISTRIBUTION WIDTH 20.1 % (12.0-16.0); RED CELL COUNT 2.74 10/6/uL (4.0-5.6); WHITE BLOOD CELLS 5.1 10/3/uL (4.5-10.5)
[2016-09-27 05:26] LABS: INTERNATIONAL NORMAL RATI 2.2 UNITS (-)
[2016-09-27 05:29] LABS: MANUAL DIFF NO %
[2016-09-27 05:36] LABS: BUN (BLOOD UREA NITROGEN) 29 MG/DL (6-23); CALCIUM, SERUM 8.6 MG/DL (8.5-10.4); CHLORIDE, SERUM 104 MMOL/L (96-112); CO2 (CARBON DIOXIDE) 26 MMOL/L (24-34); CREATININE 1.21 MG/DL (0.55-1.02); GFR AFRICAN AMERICAN 50 ML/MIN (>=60); GFR NON AFRICAN AMERICAN 43 ML/MIN (>=60); GLUCOSE, SERUM 87 MG/DL (60-99); POTASSIUM, SERUM 4.4 MMOL/L (3.5-5.3); SODIUM, SERUM 137 MMOL/L (135-148)
[2016-09-28 06:49] LABS: BASOPHILS ABSOLUTE 0.06 10/3/uL (0.0-0.16); EOSINOPHILS 4.2 %; EOSINOPHILS ABSOLUTE 0.25 10/3/uL (0.0-0.53); HEMATOCRIT 24.2 % (36.0-48.0); HEMOGLOBIN 7.3 g/dL (12.0-16.0); IMMATURE GRANULOCYTES 0.2 %; IMMATURE GRANULOCYTES ABSOLUTE 0.01 10/3/uL (0.0-0.11); LYMPHOCYTES ABSOLUTE 1.14 10/3/uL (0.67-4.30); MEAN CORPUS HGB CONC 30.2 g/dL (32.0-36.0); MEAN CORPUSCULAR HEMOGLOB 25.2 pg (26.0-34.0); MEAN CORPUSCULAR VOLUME 83.4 fL (80-100); MEAN PLATELET VOLUME 9.4 fL (9.2-13.0); MONOCYTES 9.5 %; MONOCYTES ABSOLUTE 0.57 10/3/uL (0.21-1.20); NEUTROPHILS 66.1 %; NEUTROPHILS ABSOLUTE 3.97 10/3/uL (2.02-8.40); PLATELET COUNT 266 10/3/uL (150-400); RBC DISTRIBUTION WIDTH 20.2 % (12.0-16.0)
[2016-09-28 06:50] LABS: MANUAL DIFF NO %
[2016-09-28 06:56] LABS: INTERNATIONAL NORMAL RATI 1.7 UNITS (-)
[2016-09-28 06:57] LABS: PROTIME (NOT ORD) 19.6 SEC (12.0-14.5)
[2016-09-28 07:05] LABS: ALBUMIN 3.4 G/DL (3.5-5.0); ALKALINE PHOSPHATASE 53 U/L (45-117); BUN (BLOOD UREA NITROGEN) 29 MG/DL (6-23); CHLORIDE, SERUM 105 MMOL/L (96-112); CO2 (CARBON DIOXIDE) 26 MMOL/L (24-34); CREATININE 1.15 MG/DL (0.55-1.02); DIRECT BILIRUBIN 0.1 MG/DL (0.0-0.4); GFR AFRICAN AMERICAN 53 ML/MIN (>=60); GFR NON AFRICAN AMERICAN 46 ML/MIN (>=60); GLUCOSE, SERUM 80 MG/DL (60-99); INDIRECT BILIRUBIN(NOT ORDER) 0.4 MG/DL (0.1-0.9); POTASSIUM, SERUM 4.5 MMOL/L (3.5-5.3); SGOT(AST) 20 U/L (5-40); SGPT(ALT) 13 U/L (5-65); SODIUM, SERUM 140 MMOL/L (135-148); TOTAL PROTEIN 7.3 G/DL (6.0-8.5)
[2016-09-28 07:06] LABS: TOTAL BILIRUBIN 0.5 MG/DL (0-1.2)
[2016-09-29 06:54] LABS: INTERNATIONAL NORMAL RATI 1.5 UNITS (-); PROTIME (NOT ORD) 18.2 SEC (12.0-14.5)
[2016-09-29 06:58] LABS: BUN (BLOOD UREA NITROGEN) 28 MG/DL (6-23); CHLORIDE, SERUM 108 MMOL/L (96-112); CO2 (CARBON DIOXIDE) 22 MMOL/L (24-34); CREATININE 1.09 MG/DL (0.55-1.02); GFR AFRICAN AMERICAN 57 ML/MIN (>=60); GFR NON AFRICAN AMERICAN 49 ML/MIN (>=60); GLUCOSE, SERUM 77 MG/DL (60-99); POTASSIUM, SERUM 4.6 MMOL/L (3.5-5.3); SODIUM, SERUM 140 MMOL/L (135-148)
[2016-09-29 07:35] LABS: BASOPHILS ABSOLUTE 0.05 10/3/uL (0.0-0.16); EOSINOPHILS 4.4 %; EOSINOPHILS ABSOLUTE 0.23 10/3/uL (0.0-0.53); HEMATOCRIT 23.2 % (36.0-48.0); HEMOGLOBIN 7.1 g/dL (12.0-16.0); IMMATURE GRANULOCYTES 0.2 %; IMMATURE GRANULOCYTES ABSOLUTE 0.01 10/3/uL (0.0-0.11); LYMPHOCYTES 20.4 %; LYMPHOCYTES ABSOLUTE 1.06 10/3/uL (0.67-4.30); MEAN CORPUS HGB CONC 30.6 g/dL (32.0-36.0); MEAN CORPUSCULAR HEMOGLOB 25.5 pg (26.0-34.0); MEAN CORPUSCULAR VOLUME 83.5 fL (80-100); MEAN PLATELET VOLUME 9.3 fL (9.2-13.0); MONOCYTES 8.1 %; MONOCYTES ABSOLUTE 0.42 10/3/uL (0.21-1.20); NEUTROPHILS 65.9 %; NEUTROPHILS ABSOLUTE 3.43 10/3/uL (2.02-8.40); PLATELET COUNT 255 10/3/uL (150-400); RED CELL COUNT 2.78 10/6/uL (4.0-5.6); WHITE BLOOD CELLS 5.2 10/3/uL (4.5-10.5)
[2016-09-29 07:36] LABS: MANUAL DIFF NO %
[2016-09-29] MEDS ORDERED: COREG3 PO (18:39)
[2016-09-29] MEDS ORDERED: ELIQUIS 5 MG TAB5 MG PO (18:40)
[2016-09-29] MEDS ORDERED: ULTRAM50 PO (18:42)
[2017-02-20] MEDS ORDERED: GLUCPH PO (10:56)
[2017-02-20] MEDS ORDERED: JANTOVEN5 MG PO (11:18)
[2017-02-20] MEDS ORDERED: LAN25 PO (11:20)
[2017-02-20] MEDS ORDERED: JANTOVEN6 MG PO ×2 (11:23→11:25)
[2017-02-20] MEDS ORDERED: DEMA20 PO (11:26)
[2017-02-20] MEDS ORDERED: MAGOX4 PO (11:27)
[2017-02-20] MEDS ORDERED: LOTE10 PO (11:27)
[2017-02-20] MEDS ORDERED: MICRO-K10 MEQ PO (11:27)
[2017-02-20] MEDS ORDERED: COREG3 PO (11:28)
[2017-02-27] MEDS ORDERED: PROTONIX PO (14:34)
[2017-02-27] MEDS ORDERED: NORV5 PO (14:39)
== END 2016-09-29 19:55 | disposition home or self-care (01) | DRG 243 ==
LOC: CORLMH 05:46 → SSU2 06:00 → 7NO 09-16 15:05
PROVIDERS: Internal Medicine; Internal Medicine Clinical Cardiac Electrophysiology; Internal Medicine Gastroenterology
PROC: 30233N1 Transfusion of Nonautologous Red Blood Cells into Peripheral Vein, Percutaneous Approach (ICD-10-PCS; 2016-09-15)
PROC: 0DJ08ZZ Inspection of Upper Intestinal Tract, Via Natural or Artificial Opening Endoscopic (ICD-10-PCS; 2016-09-16)
PROC: 0DJ08ZZ Inspection of Upper Intestinal Tract, Via Natural or Artificial Opening Endoscopic (ICD-10-PCS; principal; 2016-09-16 12:00)
PROC: 0JH607Z Insertion of Cardiac Resynchronization Pacemaker Pulse Generator into Chest Subcutaneous Tissue and Fascia, Open Approach (ICD-10-PCS; 2016-09-22)
PROC: 02H63JZ Insertion of Pacemaker Lead into Right Atrium, Percutaneous Approach (ICD-10-PCS; 2016-09-22)
PROC: 02HK3JZ Insertion of Pacemaker Lead into Right Ventricle, Percutaneous Approach (ICD-10-PCS; 2016-09-22)
PROC: 02H43JZ Insertion of Pacemaker Lead into Coronary Vein, Percutaneous Approach (ICD-10-PCS; 2016-09-22)
PROC: 2W04X6Z Change Pressure Dressing on Chest Wall (ICD-10-PCS; 2016-09-26)
DX: I44.2 Atrioventricular block, complete (principal); K92.2 Gastrointestinal hemorrhage, unspecified; I50.22 Chronic systolic (congestive) heart failure; I48.91 Unspecified atrial fibrillation; Z53.09 Procedure and treatment not carried out because of other contraindication; Z95.0 Presence of cardiac pacemaker; Z90.49 Acquired absence of other specified parts of digestive tract; Z90.710 Acquired absence of both cervix and uterus; Z87.891 Personal history of nicotine dependence; Z79.01 Long term (current) use of anticoagulants; K31.819 Angiodysplasia of stomach and duodenum without bleeding; D50.9 Iron deficiency anemia, unspecified; Z88.0 Allergy status to penicillin
CPT/HCPCS: 13160; 33207; 33225; 33233; 36005; 36415; 71010; 80048; 80076; 82270; 82272; 82728; 82962; 83540; 83550; 83735; 85014; 85018; 85025; 85045; 85610; 85730; 86850; 86870; 86900; 86901; 86902; 86920; 86922; 93005; 97161-GP; 97165-GO; 97535-GO; 97605; 97607; A9270-GY; C1769; C1887; C1892; C1898; C1900; C2621; C9113; G8978-CH-GP; G8979-CH-GP; G8980-CH-GP; J0690; J1750; J2370; J2405; J3010; P9016; Q9967

== ENCOUNTER 2016-10-02 11:50 | Inpatient (IN) | payer MEDICARE, BC ==
--- NOTE | ~2016-10-02 | CN ---
Consultation Report [facility] [address] [place]. [address] NAME: MARY JAUREGUI : 38 STATUS : ADM IN PAT#: [id number] AGE: 75 ADM/REG DATE : 10/02/16 MR#: [id number] REPORT SERV DATE: 10/03/16 DICTATED BY: KEVIN VEE DATE: 10/02/16 REPORT STATUS : Draft TRANSCRIBED BY: MODL DATE: 10/02/16 CONSULTATION DATE OF CONSULTATION: 10/02/2016 HISTORY OF PRESENT ILLNESS: This is a 75-year-old white female whom I am seeing for Dr. Carolyn Juarez, admitted with bright red blood. No abdominal pain. No nausea, vomiting, or fever. No shortness of breath or chest pain. Known history of iron-deficiency anemia. Had a gastric AVM, treated with APC on 09/16/[address] Juarez. She has 2 mechanical valves, mitral and aortic valves, and had a recent change of her pacemaker last week, was discharged on Coumadin and Eliquis. She is diabetic, hypertensive, had a negative colon in 2014, status post cholecystectomy, hysterectomy, umbilical hernia, and appendectomy. SOCIAL HISTORY: Negative for EtOH or nicotine. Negative for aspirin. FAMILY HISTORY: Positive for colon cancer. DATA: Initial hemoglobin was 7.6, dropped to 6.9. Has 2 units pending to be given to her. PHYSICAL EXAMINATION: GENERAL: Well-developed and well-nourished white female, alert and oriented x3. HEENT: Anicteric. NECK: Negative. CHEST: Clear to percussion. HEART: Artifactual heart sounds, related to mechanical valves. ABDOMEN: Soft. Nontender. Bowel sounds are present. EXTREMITIES: Grossly intact. NEUROLOGIC: Grossly intact. ASSESSMENT: 1. Rectal bleeding. Hemoglobin was 7.6, now down to 6.9, awaiting transfusion. History of iron-deficiency anemia. Had treated the gastric AVMs by Dr. Juarez on 09/16/2016, on Eliquis and Coumadin. Negative colon in 2014. 2. Mechanical valve x2 as outlined above. History of congestive heart failure. 3. Recent pacemaker change last week. 4. Hypertension. 5. Diabetes mellitus. SUGGESTIONS: 1. Eliquis is on hold. 2. Coumadin is on hold, but will need to be restarted at some point. 3. I agree with transfusion. 4. Agree with Protonix. 5. We will keep n.p.o. until seen by Dr. Juarez in the a.m. and decide if she is going to Consultation Report [place] [address] [place]. [address] NAME: MARY JAUREGUI : 38 STATUS : ADM IN PAT#: [id number] AGE: 75 ADM/REG DATE : 10/02/16 MR#: [id number] REPORT SERV DATE: 10/03/16 DICTATED BY: KEVIN VEE DATE: 10/02/16 REPORT STATUS : Draft TRANSCRIBED BY: BONITA DATE: 10/02/16 repeat colon at that point. DC/BONITA Kevin Vee M.D. / [id number] CC: MD Jarad Alan M.D. Camille Sommer, MD
--- NOTE | ~2016-10-02 | CN ---
Consultation Report [facility] [address] [place]. [address] NAME: ARACELY JAUREGUI : 36 STATUS : ADM IN [facility]#: [id number] AGE: 75 ADM/REG DATE : 10/02/16 MR#: [id number] REPORT SERV DATE: 10/03/16 DICTATED BY: SAURAV ARCE DATE: 10/02/16 REPORT STATUS : Draft TRANSCRIBED BY: MODL DATE: 10/02/16 CARDIOLOGY CONSULTATION DATE OF CONSULTATION: INDICATIONS: GI bleed. The patient has mechanical aortic and mitral prostheses, on Eliquis and warfarin. HISTORY OF PRESENT ILLNESS: Aracely Jauregui is a 75-year-old female who has had complex device revision procedure last week. She was discharged to home end of last week. She presents to the emergency room today. She had a significant bout of red blood from her rectum yesterday. Her last dose of anticoagulants was Monday evening. Her INR today is 1.9. She reports the bleeding has significantly improved throughout the day today. GI has been consulted and their evaluation is pending. She apparently has a history of AVMs. Recent EGD showed some angioectasia. The patient is in no acute distress. Without complaints of chest pain or shortness of breath. No syncope or presyncope. Does have some fatigue, likely related to her anemia. Hemoglobin 7.6. PAST MEDICAL HISTORY: Mechanical aortic and mitral prostheses, chronic systolic heart failure and dilated cardiomyopathy, ejection fraction 35%, diabetes, and biventricular pacemaker. MEDICATIONS: Listed in [facility] medication form and reviewed. ALLERGIES: SILDENAFIL AND PENICILLIN. SOCIAL HISTORY: No present smoking. FAMILY HISTORY: Reviewed and noncontributory. REVIEW OF SYSTEMS: As per the HPI. Otherwise, all other review of systems negative. PHYSICAL EXAMINATION: VITAL SIGNS: Blood pressure 132/55, pulse 61, respiratory rate 18, oxygen saturation 100% on room air. GENERAL: Appears stated age, no distress. EYES: Sclerae anicteric, no arcus senilis. MOUTH: Oral mucosa moist, lips acyanotic. NECK: Jugular venous pressure normal, no carotid bruits. LUNGS: Clear to auscultation bilaterally, normal inspiratory effort. CARDIAC: Irregular rhythm with 2/6 systolic ejection murmur and crisp prosthetic heart Consultation Report [facility] [address] [place]. [address] NAME: ARACELY JAUREGUI : 36 STATUS : ADM IN PAT#: [id number] AGE: 75 ADM/REG DATE : 10/02/16 MR#: [id number] REPORT SERV DATE: 10/03/16 DICTATED BY: SAURAV ARCE DATE: 10/02/16 REPORT STATUS : Draft TRANSCRIBED BY: KIRSTENL DATE: 10/02/16 sound. ECG is ventricular paced with a PVC. ABDOMEN: Soft, nondistended, nontender. EXTREMITIES: No edema. SKIN: Warm and dry. NEURO/PSYCH: Alert and oriented, nonfocal, mood appropriate. LABORATORY DATA: Creatinine 1.25, potassium 4.3, INR 1.9, and hemoglobin 7.6. IMPRESSION: 1. Gastrointestinal bleed. 2. Mechanical mitral and aortic prostheses. 3. Dilated cardiomyopathy and chronic systolic heart failure. 4. Diabetes. 5. Acute blood loss anemia. RECOMMENDATION: She will remain off oral anticoagulants tonight. Check INR and hemoglobin in a.m. GI evaluation pending. Consider restarting warfarin to a goal INR between 2.5 and 3.5 in the morning if acceptable from a GI standpoint. Discussed with the patient and family, and all questions answered. GKArnold/BONITA Saurav Arce M.D. / [id number] CC: MD Jarad Alan M.D.
--- NOTE | ~2016-10-02 | HP ---
History And Physical [place] [id number] [facility] [place]. [address] NAME: MARY JAUREGUI : 36 STATUS : ADM IN [facility]#: [id number] AGE: 75 ADM/REG DATE : 10/02/16 MR#: [id number] REPORT SERV DATE: 10/02/16 DICTATED BY: STEPHANIA DIGGS DATE: 10/02/16 REPORT STATUS : Draft TRANSCRIBED BY: MODL DATE: 10/02/16 DATE OF ADMISSION: 10/02/2016 CHIEF COMPLAINT: GI bleed. HISTORY OF PRESENT ILLNESS: The patient is a 75-year-old female. She has a past medical history significant for mechanical mitral and aortic valve, previously on Coumadin anticoagulation. She has a history of congestive heart failure with an EF of 35%. She has a history of iron-deficiency anemia. She has a history of atrial fibrillation. She recently was hospitalized and discharged on the after having had a pacemaker removed and subsequent improved pacemaker placed, and she presents today with GI bleeding. History is from the patient and her family who are present. Apparently, the patient was discharged on the and was taking for some reason Coumadin and Eliquis at home. She states during her hospital stay, her medications were changed and she was placed on heparin temporarily, I assume as coverage from some of her procedures. She has noted now over the past 24 hours that she has had GI bleeding. She reports approximately five bowel movements, all bloody. She did not notice any melena in her stool. She has had no hematemesis. She became concerned and she stopped her Eliquis on her own. She states her last dose was yesterday morning. This morning, her bowel movement was ramp attendant, still bloody, but less amount, so she presented to the emergency department. She has had some mild abdominal pain and cramping but no other symptoms. When she was here previously she was seen by Dr. Juarez. She had a previous colonoscopy in 2014. She underwent an upper endoscopy on the . She had three small angioectasias without active bleeding and those were coagulated. She is currently not complaining of chest pain, palpitations, or failure symptoms. PAST MEDICAL HISTORY: As covered above. PAST SURGICAL HISTORY: She has had a cholecystectomy, hysterectomy, and the mechanical heart valves and a bone spur. CURRENT MEDICATIONS: Eliquis, which she stopped yesterday, previous dose was 5 mg twice a day; Coreg 3.125 twice a day; B12 1000; magnesium 400; Glucophage 500 b.i.d.; potassium 10; Demadex 10; Coumadin 5.5 every evening. ALLERGIES: TO PENICILLIN AND VIAGRA. FAMILY HISTORY: Both parents from "old age." SOCIAL HISTORY: Previous smoker, quit many years ago. Half pack per day. No EtOH. REVIEW OF SYSTEMS: HEENT: No headache, dizziness. CARDIOVASCULAR: No chest pains, palpitations, shortness of breath. GI: As covered in HPI. : No dysuria, hematuria. NEUROMUSCULOSKELETAL: No myalgias. History And Physical [address] [address] NAME: MARY JAUREGUI : 36 STATUS : ADM IN [facility]#: [id number] AGE: 75 ADM/REG DATE : 10/02/16 MR#: [id number] REPORT SERV DATE: 10/02/16 DICTATED BY: STEPHANIA DIGGS DATE: 10/02/16 REPORT STATUS : Draft TRANSCRIBED BY: BONITA DATE: 10/02/16 The remainder of her 10-point review of systems is negative. PHYSICAL EXAMINATION: VITAL SIGNS: BP 132/55, temperature 98.2, pulse 61, respirations 20, sat 97%. GENERAL: She is awake, alert, oriented, and in no acute distress. HEENT: Normocephalic, atraumatic. Sclerae nonicteric. NECK: Supple. HEART: Regular rate and rhythm. LUNGS: Clear to auscultation without rhonchi, rales, or wheezes. ABDOMEN: Nontender and nondistended. She has no guarding or rebound. Positive bowel sounds. EXTREMITIES: Trace edema. NEUROLOGIC: Grossly intact. LABORATORY DATA: Sodium 142, potassium 4.3, chloride 107, CO2 27, BUN and creatinine of 31 and 1.25 with a glucose 92. White count is 6.1, H and H of 7.6/25.2, platelets 296. INR is 1.9. ASSESSMENT: 1. 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 2. Congestive heart failure. 3. Mechanical heart valve. PLAN: 1. I spoke to Dr. Duggan who will see the patient shortly requesting n.p.o. status, IV access, type and match, serial hemoglobins and will see later today. Eliquis has already been stopped and Coumadin will be held at the moment. 2. We will consult [facility] for assistance in management with her mechanical heart valve. No recent pacemaker exchange. Apparently, there was a wire, which could not be extracted. 3. We will place on sliding scale for diabetes. 4. We will monitor transfusions carefully and diurese appropriately given her history of CHF. 5. We will monitor the patient closely with her response to transfusion, her amount of bleeding, and her hemodynamics and currently, there is no IMCU beds available. NIEVESF/BONITA Stephania Diggs M.D. / [id number] History And Physical [address] [address] NAME: MARY JAUREGUI : 36 STATUS : ADM IN [facility]#: [id number] AGE: 75 ADM/REG DATE : 10/02/16 MR#: [id number] REPORT SERV DATE: 10/02/16 DICTATED BY: STEPHANIA DIGGS DATE: 10/02/16 REPORT STATUS : Draft TRANSCRIBED BY: MODL DATE: 10/02/16 CC: MD Jarad Alan M.D.
--- NOTE | ~2016-10-02 | DS ---
Discharge Summary [facility] [address] [place]. [address] NAME: MARY JAUREGUI : 36 STATUS : DIS IN PAT#: [id number] AGE: 75 ADM/REG DATE : 10/02/16 MR#: [id number] REPORT SERV DATE: 10/10/16 DICTATED BY: HEIDI ESTEBAN DATE: 10/09/16 REPORT STATUS : Draft TRANSCRIBED BY: MODL DATE: 10/09/16 ADMISSION DATE: 10/02/2016 DISCHARGE DATE: 10/09/2016 CONDITION ON DISCHARGE: Stable. DISPOSITION: Discharged to home. Advice for the patient is to follow up with her orderlies teacher within the next two to three weeks and follow up with her PCP within the next one to two weeks. The patient is also to have her PT and INR checked [facility] where she goes every other day for one week, twice a week for the next week after that, and once a week for two more weeks after that. Once this happens and the patient gets established on her regimen of Coumadin 5.5 mg every day that she has been doing for years, I guess her INR could be checked once a month. DIAGNOSES ON DISCHARGE: 1. Acute gastrointestinal bleed - resolved. This may have been secondary to gastric arteriovenous malformations. The patient recently in August, had an upper endoscopy that showed gastric arteriovenous malformations that were cauterized. But after that for her atrial fibrillation and mechanical aortic and mitral valves, she was started on Coumadin. Apparently, she was started on both Eliquis and Coumadin, which at this time we do not know why and at what point this happened, but she was on both for an overlapping period and now came in back again with gastrointestinal bleed. Both medications were promptly stopped and GI consult was obtained. Dr. Duggan saw the patient. The patient had a negative colonoscopy in 2014 and just last month had an upper endoscopy, and hence, Dr. Duggan decided not to proceed with another one as the patient's GI bleeding has stopped by then. Once the gastrointestinal bleeding was stopped, the patient was started back on Coumadin therapy at this time because this is the drug that she prefers and not Eliquis. But while waiting for her to become therapeutic in her INR to at least close to 2.5, she was started on bridge therapy with IV heparin. The patient did great, and for the last two to three days, the patient has been really doing well and has been ambulatory, but as she has been on IV heparin for bridge therapy and also carefully watched for gastrointestinal bleed while on Coumadin too waiting for her to get therapeutic, she has been doing great. So on 10/09/2016, her INR is 2.2 and she has been doing fairly well with a 5.5 mg of Coumadin that she takes once a day and she is well aware of this and well use to this. She wants to go home today as she is feeling good. Hence, she will be discharged in stable condition and she will continue taking Coumadin 5.5 mg once a day. We will stop her IV heparin before discharge of course. Hence the diagnoses on discharge finally that we have on this patient: 1. Chronic atrial fibrillation, status post pacemaker placement. 2. Mechanical aortic valve and mechanical mitral valve for which the patient will definitely need to be on Coumadin for lifelong with an INR kept ideally between 2.5 and 3.5, and the patient understands this. Discharge Summary [address] [address] NAME: MARY JAUREGUI : 36 STATUS : DIS IN PAT#: [id number] AGE: 75 ADM/REG DATE : 10/02/16 MR#: [id number] REPORT SERV DATE: 10/10/16 DICTATED BY: HEIDI ESTEBAN DATE: 10/09/16 REPORT STATUS : Draft TRANSCRIBED BY: BONITA DATE: 10/09/16 Other diagnoses include chronic congestive heart failure with an ejection fraction of 35%, which is stable at this time. Other diagnoses also include diabetes mellitus and hypertension, which are both stable at this time. The consultations obtained during this hospitalization include consultation by Cardiology, Dr. Arce and also GI consult by Dr. Duggan. She will be going home on the following medications: Coreg 3.125 mg p.o. b.i.d., Coumadin 5.5 mg p.o. once a day, Glucophage 500 mg p.o. b.i.d., magnesium oxide 400 mg p.o. daily, potassium 10 mEq p.o. daily, Protonix 40 mg p.o. daily, and vitamin B12. The most recent labs that I have on this patient includes an INR of 2.2, which is close to being therapeutic at 2.5 or above. CBC that shows a WBC count of 3.9, hemoglobin 10, hematocrit of 31.8, and platelet count of 174. Electrolyte profile shows sodium of 143, potassium 4, BUN is 25, and creatinine is 1.08. Her blood glucose levels have been fairly well controlled all the while during this hospitalization and her most recent A1c has not been done yet. Apparently, her blood glucose level stays under good control while at home according to Ms. Prideey. Hence, the patient is being discharged home in stable condition with advice to follow up at the [facility] and with Coumadin check as I have dictated above. I have spent about 40 minutes in coordinating discharge care of this patient including face- to-face encounter and summarizing this discharge. AVA/BONITA Heidi Esteban M.D. / [id number] CC: Ivy Galdamez M.D.
[~2016-10-02 11:50] MED LIST changes: +COREG3 PO; +ELIQUIS 5 MG TAB5 MG PO; +ULTRAM50 PO
[2016-10-02 12:07] LABS: BASOPHILS 1.5 %; BASOPHILS ABSOLUTE 0.09 10/3/uL (0.0-0.16); EOSINOPHILS 4.6 %; EOSINOPHILS ABSOLUTE 0.28 10/3/uL (0.0-0.53); ER CBC TAT 0 Hrs 05 Mins; HEMATOCRIT 25.2 % (36.0-48.0); HEMOGLOBIN 7.6 g/dL (12.0-16.0); IMMATURE GRANULOCYTES 0.2 %; IMMATURE GRANULOCYTES ABSOLUTE 0.01 10/3/uL (0.0-0.11); LYMPHOCYTES ABSOLUTE 1.16 10/3/uL (0.67-4.30); MANUAL DIFF NO %; MEAN CORPUS HGB CONC 30.2 g/dL (32.0-36.0); MEAN CORPUSCULAR HEMOGLOB 25.4 pg (26.0-34.0); MEAN CORPUSCULAR VOLUME 84.3 fL (80-100); MEAN PLATELET VOLUME 8.7 fL (9.2-13.0); MONOCYTES 7.7 %; MONOCYTES ABSOLUTE 0.47 10/3/uL (0.21-1.20); NEUTROPHILS ABSOLUTE 4.09 10/3/uL (2.02-8.40); PLATELET COUNT 296 10/3/uL (150-400); RED CELL COUNT 2.99 10/6/uL (4.0-5.6); WHITE BLOOD CELLS 6.1 10/3/uL (4.5-10.5)
[2016-10-02 12:14] LABS: INTERNATIONAL NORMAL RATI 1.9 UNITS (-); PARTIAL THROMBO TIME 33.3 SEC (22.5-37.2)
[2016-10-02 12:16] LABS: PROTIME (NOT ORD) 21.3 SEC (12.0-14.5)
[2016-10-02 12:21] LABS: ALBUMIN 3.8 G/DL (3.5-5.0); BUN (BLOOD UREA NITROGEN) 31 MG/DL (6-23); CALCIUM, SERUM 9.1 MG/DL (8.5-10.4); CHLORIDE, SERUM 107 MMOL/L (96-112); CREATININE 1.25 MG/DL (0.55-1.02); GFR AFRICAN AMERICAN 48 ML/MIN (>=60); GFR NON AFRICAN AMERICAN 41 ML/MIN (>=60); GLOBULIN 3.7 G/DL (2.5-4.1); GLUCOSE, SERUM 92 MG/DL (60-99); POTASSIUM, SERUM 4.3 MMOL/L (3.5-5.3); SGOT(AST) 25 U/L (5-40); SGPT(ALT) 15 U/L (5-65); SODIUM, SERUM 142 MMOL/L (135-148); TOTAL BILIRUBIN 0.4 MG/DL (0-1.2); TOTAL PROTEIN 7.5 G/DL (6.0-8.5)
[2016-10-02 12:22] LABS: ALKALINE PHOSPHATASE 64 U/L (45-117); CO2 (CARBON DIOXIDE) 27 MMOL/L (24-34)
[2016-10-02 17:41] LABS: HEMATOCRIT 23.1 % (36.0-48.0)
[2016-10-02 17:44] LABS: HEMOGLOBIN 6.9 g/dL (12.0-16.0)
[2016-10-03 08:20] LABS: INTERNATIONAL NORMAL RATI 1.5 UNITS (-)
[2016-10-03 08:26] LABS: PROTIME (NOT ORD) 17.6 SEC (12.0-14.5)
[2016-10-03 11:01] LABS: HEMOGLOBIN 8.6 g/dL (12.0-16.0)
[2016-10-03 17:36] LABS: HEMATOCRIT 28.7 % (36.0-48.0)
[2016-10-04 00:06] LABS: HEMATOCRIT 29.6 % (36.0-48.0); HEMOGLOBIN 9.4 g/dL (12.0-16.0)
[2016-10-04 04:46] LABS: HEMATOCRIT 28.9 % (36.0-48.0); HEMOGLOBIN 9.1 g/dL (12.0-16.0)
[2016-10-04 04:49] LABS: INTERNATIONAL NORMAL RATI 1.4 UNITS (-); PROTIME (NOT ORD) 16.7 SEC (12.0-14.5)
[2016-10-04 05:02] LABS: CALCIUM, SERUM 9.1 MG/DL (8.5-10.4); CHLORIDE, SERUM 109 MMOL/L (96-112); CO2 (CARBON DIOXIDE) 25 MMOL/L (24-34); CREATININE 1.02 MG/DL (0.55-1.02); GFR AFRICAN AMERICAN 61 ML/MIN (>=60); GFR NON AFRICAN AMERICAN 53 ML/MIN (>=60); GLUCOSE, SERUM 75 MG/DL (60-99); POTASSIUM, SERUM 3.8 MMOL/L (3.5-5.3); SODIUM, SERUM 144 MMOL/L (135-148)
[2016-10-04 05:03] LABS: BUN (BLOOD UREA NITROGEN) 15 MG/DL (6-23)
[2016-10-05 05:18] LABS: INTERNATIONAL NORMAL RATI 1.3 UNITS (-); PROTIME (NOT ORD) 16.5 SEC (12.0-14.5)
[2016-10-05 05:20] LABS: BASOPHILS 1.1 %; BASOPHILS ABSOLUTE 0.06 10/3/uL (0.0-0.16); EOSINOPHILS 5.9 %; EOSINOPHILS ABSOLUTE 0.31 10/3/uL (0.0-0.53); HEMATOCRIT 29.4 % (36.0-48.0); HEMOGLOBIN 9.2 g/dL (12.0-16.0); LYMPHOCYTES 21.5 %; LYMPHOCYTES ABSOLUTE 1.13 10/3/uL (0.67-4.30); MEAN CORPUS HGB CONC 31.3 g/dL (32.0-36.0); MEAN CORPUSCULAR HEMOGLOB 26.7 pg (26.0-34.0); MEAN CORPUSCULAR VOLUME 85.2 fL (80-100); MEAN PLATELET VOLUME 9.5 fL (9.2-13.0); MONOCYTES 10.8 %; MONOCYTES ABSOLUTE 0.57 10/3/uL (0.21-1.20); NEUTROPHILS 60.7 %; NEUTROPHILS ABSOLUTE 3.19 10/3/uL (2.02-8.40); PLATELET COUNT 222 10/3/uL (150-400); RBC DISTRIBUTION WIDTH 20.5 % (12.0-16.0); RED CELL COUNT 3.45 10/6/uL (4.0-5.6); WHITE BLOOD CELLS 5.3 10/3/uL (4.5-10.5)
[2016-10-05 05:36] LABS: MANUAL DIFF NO %
[2016-10-06 04:22] LABS: BASOPHILS ABSOLUTE 0.05 10/3/uL (0.0-0.16); EOSINOPHILS 7.3 %; EOSINOPHILS ABSOLUTE 0.38 10/3/uL (0.0-0.53); HEMATOCRIT 29.7 % (36.0-48.0); HEMOGLOBIN 9.2 g/dL (12.0-16.0); LYMPHOCYTES 23.1 %; LYMPHOCYTES ABSOLUTE 1.21 10/3/uL (0.67-4.30); MEAN CORPUSCULAR HEMOGLOB 27.1 pg (26.0-34.0); MEAN CORPUSCULAR VOLUME 87.6 fL (80-100); MEAN PLATELET VOLUME 9.7 fL (9.2-13.0); MONOCYTES 8.6 %; MONOCYTES ABSOLUTE 0.45 10/3/uL (0.21-1.20); NEUTROPHILS ABSOLUTE 3.14 10/3/uL (2.02-8.40); PLATELET COUNT 201 10/3/uL (150-400); RED CELL COUNT 3.39 10/6/uL (4.0-5.6); WHITE BLOOD CELLS 5.2 10/3/uL (4.5-10.5)
[2016-10-06 04:24] LABS: MANUAL DIFF NO %
[2016-10-06 04:30] LABS: INTERNATIONAL NORMAL RATI 1.3 UNITS (-); PROTIME (NOT ORD) 16.1 SEC (12.0-14.5)
[2016-10-06 04:31] LABS: BUN (BLOOD UREA NITROGEN) 16 MG/DL (6-23); CALCIUM, SERUM 9.4 MG/DL (8.5-10.4); CHLORIDE, SERUM 107 MMOL/L (96-112); CO2 (CARBON DIOXIDE) 25 MMOL/L (24-34); CREATININE 0.95 MG/DL (0.55-1.02); GFR AFRICAN AMERICAN 67 ML/MIN (>=60); GFR NON AFRICAN AMERICAN 58 ML/MIN (>=60); GLUCOSE, SERUM 89 MG/DL (60-99); POTASSIUM, SERUM 4.1 MMOL/L (3.5-5.3); SODIUM, SERUM 141 MMOL/L (135-148)
[2016-10-07 05:21] LABS: INTERNATIONAL NORMAL RATI 1.5 UNITS (-); PROTIME (NOT ORD) 18.4 SEC (12.0-14.5)
[2016-10-08 07:03] LABS: INTERNATIONAL NORMAL RATI 1.9 UNITS (-)
[2016-10-08 07:04] LABS: PROTIME (NOT ORD) 21.8 SEC (12.0-14.5)
[2016-10-09 05:01] LABS: BASOPHILS 1.3 %; BASOPHILS ABSOLUTE 0.05 10/3/uL (0.0-0.16); EOSINOPHILS 7.1 %; EOSINOPHILS ABSOLUTE 0.28 10/3/uL (0.0-0.53); HEMATOCRIT 31.8 % (36.0-48.0); LYMPHOCYTES 31.6 %; LYMPHOCYTES ABSOLUTE 1.24 10/3/uL (0.67-4.30); MANUAL DIFF NO %; MEAN CORPUS HGB CONC 31.4 g/dL (32.0-36.0); MEAN CORPUSCULAR HEMOGLOB 27.5 pg (26.0-34.0); MEAN CORPUSCULAR VOLUME 87.4 fL (80-100); MEAN PLATELET VOLUME 10.3 fL (9.2-13.0); MONOCYTES 9.9 %; MONOCYTES ABSOLUTE 0.39 10/3/uL (0.21-1.20); NEUTROPHILS 50.1 %; NEUTROPHILS ABSOLUTE 1.96 10/3/uL (2.02-8.40); PLATELET COUNT 174 10/3/uL (150-400); RBC DISTRIBUTION WIDTH 21.7 % (12.0-16.0); RED CELL COUNT 3.64 10/6/uL (4.0-5.6); WHITE BLOOD CELLS 3.9 10/3/uL (4.5-10.5)
[2016-10-09 05:05] LABS: INTERNATIONAL NORMAL RATI 2.2 UNITS (-); PROTIME (NOT ORD) 24.4 SEC (12.0-14.5)
[2016-10-09 05:14] LABS: CALCIUM, SERUM 9.4 MG/DL (8.5-10.4); CHLORIDE, SERUM 104 MMOL/L (96-112); CO2 (CARBON DIOXIDE) 26 MMOL/L (24-34); CREATININE 1.08 MG/DL (0.55-1.02); GFR AFRICAN AMERICAN 57 ML/MIN (>=60); GFR NON AFRICAN AMERICAN 49 ML/MIN (>=60); GLUCOSE, SERUM 80 MG/DL (60-99); SODIUM, SERUM 143 MMOL/L (135-148)
[2016-10-09 05:15] LABS: BUN (BLOOD UREA NITROGEN) 25 MG/DL (6-23)
[2017-02-20] MEDS ORDERED: GLUCPH PO (10:56)
[2017-02-20] MEDS ORDERED: JANTOVEN5 MG PO (11:18)
[2017-02-20] MEDS ORDERED: LAN25 PO (11:20)
[2017-02-20] MEDS ORDERED: JANTOVEN6 MG PO ×2 (11:23→11:25)
[2017-02-20] MEDS ORDERED: DEMA20 PO (11:26)
[2017-02-20] MEDS ORDERED: LOTE10 PO (11:27)
[2017-02-20] MEDS ORDERED: MAGOX4 PO (11:27)
[2017-02-20] MEDS ORDERED: MICRO-K10 MEQ PO (11:27)
[2017-02-20] MEDS ORDERED: COREG3 PO (11:28)
[2017-02-27] MEDS ORDERED: PROTONIX PO (14:34)
[2017-02-27] MEDS ORDERED: NORV5 PO (14:39)
== END 2016-10-09 13:12 | disposition home or self-care (01) | DRG 378 ==
LOC: ER 11:50 → 7NO 14:48
PROVIDERS: Emergency Medicine; Internal Medicine; Internal Medicine Cardiovascular Disease; Internal Medicine Clinical Cardiac Electrophysiology; Nurse Practitioner Acute Care
PROC: 30233N1 Transfusion of Nonautologous Red Blood Cells into Peripheral Vein, Percutaneous Approach (ICD-10-PCS; principal; 2016-10-02)
DX: K31.811 Angiodysplasia of stomach and duodenum with bleeding (principal); I50.22 Chronic systolic (congestive) heart failure; I42.0 Dilated cardiomyopathy; I11.0 Hypertensive heart disease with heart failure; D62 Acute posthemorrhagic anemia; I48.0 Paroxysmal atrial fibrillation; E11.9 Type 2 diabetes mellitus without complications; I48.2 Chronic atrial fibrillation; Z95.2 Presence of prosthetic heart valve; Z90.49 Acquired absence of other specified parts of digestive tract; Z90.710 Acquired absence of both cervix and uterus; Z79.01 Long term (current) use of anticoagulants; Z95.0 Presence of cardiac pacemaker; Z88.8 Allergy status to other drugs, medicaments and biological substances; Z88.0 Allergy status to penicillin
CPT/HCPCS: 36415; 71010; 80048; 80053; 82962; 83880; 85014; 85018; 85025; 85610; 85730; 86850; 86870; 86900; 86901; 86920; 86922; 93005; 93288; 99284; A9270-GY; C9113; J1940; P9016